=== PATIENT | female | born 1960 | race Caucasian/White ===

== ENCOUNTER 2019-10-17 14:05 | Emergency (ER) | payer MEDICAID ==
[~2019-10-17] VITALS: Ht 170.2 cm; Wt 110.0 kg
[~2019-10-17 14:05] MED LIST: DOCU100C63 PO; DULO20CA18 PO; FENT1PAT10 TOP; HYDR-3972 PO; HYDR12.55 PO; LAMO150T6 PO; LEVO50TA67 PO; MELO-102 PO; OMEP20CA15 PO; PRAZ1CAP5 PO; TOPI200T16 PO; ZOLP10TA5 PO
[2019-10-17 14:43] LABS: CLARITY,URINE CLEAR (Clear); COLOR,URINE STRAW (Yellow); GLUCOSE, URINE >=1000 mg/dl (Neg); KETONES,URINE NEGATIVE (Neg); LEUKOCYTE ESTERASE ,URINE NEGATIVE (Neg); NITRITES, URINE NEGATIVE (Neg); OCCULT BLOOD,URINE TRACE-LYSED (Neg); PROTEIN,URINE NEGATIVE (Neg); UROBILINOGEN,URINE 0.2 E.U/dL (0.2-1.0)
[2019-10-17 14:45] LABS: UA COLLECTION TYPE CLN CATCH MIDSTREAM
--- NOTE | 2019-10-17 14:46 | NUR ---
GALA Ramirez at bedside.
[2019-10-17 14:48] LABS: SQUAMOUS EPITHELIAL CELL,UR MODERATE /LPF (FEW)
[2019-10-17 14:49] LABS: BACTERIA,URINE FEW /HPF (Neg); RBC,URINE 0-2 /HPF (0-2); WBC,URINE 0-4 /HPF (0-4)
[2019-10-17] MEDS ORDERED: FLUC200T38 PO (15:08)
[2019-10-17 15:18] VITALS: BP 160/90
== END 2019-10-17 15:20 | disposition home or self-care (01) ==
LOC: ER 14:05
DX: B37.3 Candidiasis of vulva and vagina (principal); R30.0 Dysuria; R21 Rash and other nonspecific skin eruption; J44.9 Chronic obstructive pulmonary disease, unspecified; G89.29 Other chronic pain; F41.9 Anxiety disorder, unspecified; F32.9 Major depressive disorder, single episode, unspecified; Z87.440 Personal history of urinary (tract) infections; Z98.890 Other specified postprocedural states; Z56.0 Unemployment, unspecified; Z60.2 Problems related to living alone; Z88.1 Allergy status to other antibiotic agents; Z88.5 Allergy status to narcotic agent; Z79.2 Long term (current) use of antibiotics; Z79.899 Other long term (current) drug therapy
CPT/HCPCS: 81001; 99283

== ENCOUNTER 2022-11-30 10:27 | Emergency (ER) | payer MEDICAID ==
[~2022-11-30] VITALS: Ht 165.1 cm; Wt 86.8 kg
[2022-11-30 10:30] VITALS: TEMP 98.2
[2022-11-30 12:49] VITALS: BP 123/80; PULSE 96; RESP 18; O2SAT 97
[2022-11-30] MEDS ORDERED: NEOM10DR45 RIGHT EAR (14:29)
[2022-11-30] MEDS ORDERED: FLUC150T PO (15:29)
== END 2022-11-30 15:34 | disposition home or self-care (01) ==
LOC: ER 10:27
DX: H60.91 Unspecified otitis externa, right ear (principal); J44.9 Chronic obstructive pulmonary disease, unspecified; G89.29 Other chronic pain; M79.7 Fibromyalgia; F41.9 Anxiety disorder, unspecified; F32.A Depression, unspecified; Z98.891 History of uterine scar from previous surgery; Z56.0 Unemployment, unspecified; Z88.8 Allergy status to other drugs, medicaments and biological substances; Z88.1 Allergy status to other antibiotic agents
CPT/HCPCS: 99283